=== PATIENT | female | born 1975 | race African-American/Black ===

== ENCOUNTER → 2018-06-06 | Outpatient (CLI) | payer OTHER ==
[2018-06-05 15:58] VITALS: BMI 22.3
--- NOTE | 2018-06-06 13:56 | P.CONS ---
History of Present Illness - Reason for Consult Consult date: 06/06/18 - Chief Complaint Widespread body pain - History of Present Illness This is a 43-year-old lady with chronic history of body pain. The patient used to go to neurology clinic for injections on her back with trigger points and other procedures which she could not name. She used to use tramadol, [place] previously for her pain. Her pain is constant mostly in her lower back her mid back and her upper back and neck she also feels pain in both arms and legs. The pain wakes her up at night and she does not feel well rested when she wakes up in the morning. She said that tramadol give her good relief of pain when she combines it with Tylenol. She has scoliosis in the upper thoracic spine as per her last MRI. Review of Systems Constitutional: Reports fatigue Ears, nose, mouth and throat: Denies headache, Denies sore throat Cardiovascular: Denies chest pain, Denies shortness of breath Respiratory: Denies cough Genitourinary: Denies dysuria, Denies hematuria Musculoskeletal: Reports as per HPI Neurological: Reports as per HPI Past Medical History Past Medical History: Asthma, GERD/Reflux History of Any Multi-Drug Resistant Organisms: None Reported Past Surgical History: No Surgical Hx Reported Past Anesthesia/Blood Transfusion Reactions: No Reported Reaction Smoking Status: Current every day smoker - Past Family History Mother Family Medical History: No Reported History Medications and Allergies Home Medications Medication Instructions Recorded Confirmed Type Albuterol Inhaler [Ventolin Hfa 1 - 2 puff INHALATION RT-Q6H PRN 06/05/18 History Inhaler] Fluticasone/Salmeterol [Advair 1 inhalation PO BID 06/05/18 06/05/18 History 250-50 Diskus] Montelukast [Singulair] 10 mg PO DAILY 06/05/18 06/05/18 History Omeprazole [PriLOSEC] 20 mg PO AC-BRKFST 06/05/18 06/05/18 History Allergies Allergy/AdvReac Type Severity Reaction Status Date / Time niacin Allergy Rash/Hives Verified 06/05/18 15:52 Physical Exam Vitals: Intake and Output 06/05/18 06/06/18 06/06/18 22:59 06:59 14:59 Other: Weight 58.967 kg - Constitutional General appearance: thin - EENT Eyes: PERRLA - Respiratory Respiratory: bilateral: CTA - Cardiovascular Rhythm: regular - Neurologic Neuro exam of the upper or lower extremities showed normal and symmetrical muscle strength and deep tendon reflexes. She has widespread tenderness in the cervical paravertebral musculature and also in the lumbar and thoracic paravertebral musculature also. She has tenderness also on the sternocleidomastoid muscles bilaterally and the medial aspects of her knee joints bilaterally also on the anterior chest area at the level of the second rib bilaterally. She has normal range of motion of the cervical spine. Neurologic: CNII-XII intact Assessment and Plan Plan: This is a 43-year-old lady with what seems to be fibromyalgia and myofascial pain. The patient may benefit from getting trigger point injection from time to time however she has been getting any injections at a different clinic clinic with temporary relief of pain only. At this time I think the best treatment for her would be physical therapy and I will give her prescription for both Tylenol and a few pills of tramadol only 20 pills. She can use Tylenol on a daily basis and she can support that with tramadol which she gets severe exacerbation of her pain. We will see the patient in 4 weeks for reevaluation. The plan will be to refer her to her primary care physician for prescriptions as soon as we put her on a stable schedule of the medications. The patient understands that using office for fibromyalgia is usually contraindicated. I thank you for the consultation
[2018-06-06 14:04] VITALS: BP 113/75; PULSE 95; RESP 18
== END | disposition home or self-care (01) ==
LOC: PNWHC3 12:42
PROVIDERS: ATTEND Anesthesiology
DX: G89.29 Other chronic pain (principal); M54.5 Low back pain; M41.84 Other forms of scoliosis, thoracic region; K21.9 Gastro-esophageal reflux disease without esophagitis; F17.200 Nicotine dependence, unspecified, uncomplicated; J45.909 Unspecified asthma, uncomplicated; Z88.8 Allergy status to other drugs, medicaments and biological substances; Z79.891 Long term (current) use of opiate analgesic
CPT/HCPCS: 99201

== ENCOUNTER → 2019-08-08 | Outpatient (CLI) | payer OTHER ==
[2019-08-08 13:06] VITALS: BP 143/94; PULSE 94; RESP 16
--- NOTE | 2019-08-09 14:37 | P.PAINPG ---
Subjective Progress Note Date: 08/08/19 This is a 44-year-old lady with chronic history of body pain, last evaluated in our clinic in May 2018, at which time it was thought that she primarily had fibromyalgia and myofascial pain syndrome. She was prescribed 20 pills of tramadol and instructed to take when necessary Tylenol. She is also given physical therapy prescription. She was then lost to follow-up. She returns today. She reports that she attempted physical therapy, with no significant benefit. Since her last visit, her primary care physician has started her on gabapentin, approximately 2 months ago, she ran out of this prescription recently and has not refilled it. Today, she has multiple different pain complaintsneck, upper thoracic region, low back, bilateral knees and bilateral ankles. She states that the pain is always there and has been present for 10 years, rated as 8-10/10. She uses marijuana when necessary which helps with the pain. Of note, in the past she has been diagnosed with rheumatoid arthritis, however is not currently seeing a insurance checker or on any medications for it. Of note, the patient used to follow with Dr. Romero and was undergoing procedures with him, she reports that he wanted to proceed with radiofrequency ablation, however she did not proceed with this. She is currently not interested in any interventional pain procedures. Review of systems is negative for chest pain, shortness of breath, new onset weakness, numbness/tingling, abdominal pain, malaise, fever, night sweats, chills, homicidal or suicidal ideation, or bowel or bladder incontinence. Physical Exam Physical exam: Vitals: Reviewed in EMR GENERAL: Well appearing, in no acute distress PSYCH: Mood and affect is appropriate. Awake, alert, and oriented SKIN: Skin color, texture, turgor normal, no rashes or lesions HEENT: Normocephalic, atraumatic. EOM intact CV: No pedal edema RESP: Respirations are unlabored, no audible wheezing GI: Abdomen non-distended MUSCULOSKELETAL: Bilateral upper and lower extremity strength is normal and symmetric. No atrophy or tone abnormalities are noted. Spine: Diffuse tenderness noted in cervical, thoracic, and lumbar paraspinal musculature. Lumbar facet loading is positive bilaterally. normal cervical spine range of motion Extremities: Peripheral joint ROM is full and pain free without obvious instability or laxity in all four extremities. No edema or skin discolorations noted. Gait: Gait is normal NEUR: Bilateral upper and lower extremity coordination and muscle stretch reflexes are physiologic and symmetric. Negative clonus bilaterally. No loss of sensation is noted. Assessment and Plan Plan: This is a 43-year-old lady with multiple different sources of pain, likely attributed to a combination of fibromyalgia, myofascial pain syndrome, rheumatoid arthritis. She also has some degree of lumbar facetogenic pain from lumbar spondylosis. She is not currently interested in any interventional pain procedures. Medications: I asked her to have a discussion with her primary care physician regarding starting Cymbalta, as it has been shown to be beneficial in patients with fibromyalgia. I also asked her to continue gabapentin. We had a lengthy discussion regarding narcotics and that studies have shown that there is no role for narcotics in patients with fibromyalgia. The patient expressed understanding. Counseling: I provided her with a handout for an online fibromyalgia resourcefibroguide by Dr. Ayden Clifton, from [facility]. I also informed her that physical therapy and exercises the mainstay of treatment for this and she would likely benefit from aqua therapy, she goes to the [facility] in summer with her child. I asked her to participate in water aerobics at that point. Consults: She may benefit from seeing a insurance checker, she has had a prior diagnosis of rheumatoid arthritis. I asked her to discuss this with her primary care physician. Interventions: None currently, as she is not interested. She may benefit from lumbar medial branch workup, we discussed this and I told her to call our clinic if she is interested in the future. Follow-up: When necessary My note will be sent to Dr. John Lee, who is her her primary care physician. PQRS Measure Charge Sheet Measure #130: Documentation of Current Meds in Medical Chart: Patient's medications documented in chart Measure #226: Tobacco Use: Screen & Cessation Intervention: Pt screened for tobacco use AND intervention given Measure #111: Pneumonia Vaccination: Pneumococcal vaccine NOT administered or previously given Measure #47: Advance Care Plan: Advance care planning discussed & documented, pt chose/unable to give Measure #412: Opioid Treatment Agreement: No documentation of signed opioid treatment agreement Measure #408: Opioid Therapy Follow-up Evaluation: Patient had NO f/u eval minimum every 3 months during opioid therapy Measure #317: Preventitive Care & Scrn High Bld Press & F/U: Normal blood pressure, f/u not required Measure #128: Body Mass Index (BMI) Screening & Follow-up: BMI documented within normal parameters Measure #131: Pain Assessment & Follow-up: Pain positive & plan documented, Follow-up PRN Measure #431: Unhealthy Alcohol Use Preventative Care & Scrn: Patient not identified as an unhealthy alcohol user PQRS Narrative: Smoking Status Current every day smoker Hx Alcohol Use (MH) No Home Medications: Ambulatory Orders Albuterol Inhaler [Ventolin Hfa Inhaler] 1 - 2 puff INHALATION RT-Q6H PRN 06/05/18 Fluticasone/Salmeterol [Advair 250-50 Diskus] 1 inhalation PO BID 06/05/18 Montelukast [Singulair] 10 mg PO DAILY 06/05/18 Omeprazole [PriLOSEC] 20 mg PO AC-BRKFST 06/05/18 Gabapentin [Neurontin] 800 mg PO TID 08/08/19 Controlled Substance Measures - Controlled Substance Measures Is patient prescribed a controlled substance at discharge?: No
== END | disposition home or self-care (01) ==
LOC: PNWHC3 12:19
PROVIDERS: ATTEND Anesthesiology
DX: M47.816 Spondylosis without myelopathy or radiculopathy, lumbar region (principal); F17.200 Nicotine dependence, unspecified, uncomplicated; Z79.51 Long term (current) use of inhaled steroids; Z79.899 Other long term (current) drug therapy
CPT/HCPCS: 99211

== ENCOUNTER → 2020-12-24 | Outpatient (CLI) | payer OTHER ==
--- NOTE | 2020-12-24 12:00 | XR ---
Bilateral calcaneus 2 views of each calcaneus are submitted, no comparisons Bone mineralization is maintained. No significant spur formation or enthesophyte formation. No fractu re or dislocation. IMPRESSION: Normal calcaneus bilaterally.
--- NOTE | 2020-12-24 12:01 | XR ---
Lumbar spine HISTORY: Low back pain 3 views lumbar spine Lumbar vertebral bodies show preserved height, alignment, and bone mineralization. Disc spaces are ma intained. There is mild spondylosis. Sclerosis present in the posterior elements of the lower lumbar spine. Possible 3 mm calcification over the lower pole the left kidney. IMPRESSION: Lumbar spondylosis, possible facet arthropathy. Possible nephrolithiasis.
--- NOTE | 2020-12-24 12:03 | XR ---
Thoracic spine HISTORY: Back pain There is an S-shaped thoracic scoliosis. Thoracic vertebral bodies show preserved height. Disc spaces are relatively maintained. Is mild multilevel spondylosis. IMPRESSION: S-shaped thoracic scoliosis
--- NOTE | 2020-12-24 12:04 | XR ---
Bilateral knees HISTORY: Pain 2 views of each knee submitted. Bone mineralization, joint spaces and alignment are remarkable for question some mild joint space los s in the medial compartments. Sclerosis present within the medial femoral condyle of the left knee ma y represent a bone island. No fracture or dislocation. No evident joint effusion. IMPRESSION: May be some mild osteoarthritic change. Possible bone island.
== END | disposition home or self-care (01) ==
LOC: RADXRMAIN 10:47
PROVIDERS: ATTEND Internal Medicine
DX: M47.816 Spondylosis without myelopathy or radiculopathy, lumbar region (principal); M25.561 Pain in right knee; M25.562 Pain in left knee; M41.84 Other forms of scoliosis, thoracic region
CPT/HCPCS: 72070; 72100

== ENCOUNTER → 2021-02-12 | Outpatient (CLI) | payer OTHER ==
--- NOTE | 2021-02-15 14:26 | MM ---
Reason for exam: screening (asymptomatic). Baseline mammogram. Physical Findings: Nurse did not find any significant physical abnormalities on exam. MG Screening Mammo w CAD Bilateral CC and MLO view(s) were taken. There is a mass in the right upper quadrant middle depth and ultrasound is recommended. ASSESSMENT: Incomplete: need additional imaging evaluation, BI-RAD 0 RECOMMENDATION: Ultrasound of both breasts. [facility] will attempt to contact patient to return for ultrasound.
== END | disposition home or self-care (01) ==
LOC: RADMAMWWP 13:09
PROVIDERS: ATTEND Internal Medicine
DX: Z12.31 Encounter for screening mammogram for malignant neoplasm of breast (principal)
CPT/HCPCS: 77067

== ENCOUNTER → 2021-02-23 | Outpatient (CLI) | payer OTHER ==
--- NOTE | 2021-02-26 13:17 | USB ---
Reason for exam: additional evaluation requested from abnormal screening. Physical Findings: Breast exam preformed at baseline screening. US Breast Workup Limited MARIVEL Right limited breast ultrasound including focal area of concern, retroareolar and axilla demonstrates a 1.0 x 1.2 x 0.8cm lymph node at 10 o'clock, a 0.4 x 0.3 x 0.3cm oval, cystic lesion at 10 o'clock, duct ectasia at 12 o'clock and a 0.7 x 0.8 x 0.3cm lymph node at the axilla. Left limited breast ultrasound including focal area of concern, retroareolar and axilla demonstrates a 1.4 x 1.2 x 0.8cm lymph node at the axilla and a 0.8 x 0.5 x 1.0cm lymph node at the axilla. These results were verbally communicated with the patient and result sheet given to the patient on 02/23/21. ASSESSMENT: Probably benign, BI-RAD 3 RECOMMENDATION: Ultrasound of both breasts in 6 months.
== END | disposition home or self-care (01) ==
LOC: RADUSWWP 13:50
PROVIDERS: ATTEND Internal Medicine
DX: N63.10 Unspecified lump in the right breast, unspecified quadrant (principal); R92.8 Other abnormal and inconclusive findings on diagnostic imaging of breast

== ENCOUNTER → 2021-03-08 | Outpatient (CLI) | payer OTHER ==
--- NOTE | 2021-03-09 01:46 | MR ---
EXAMINATION TYPE: MR knee LT wo con DATE OF EXAM: 03/08/2021 COMPARISON: None HISTORY: Bilateral knee pain, painful knee caps, locking, and swelling for 15 years. Multiplanar multiecho imaging of the left knee with no contrast. The anterior and posterior cruciate ligaments are intact. There is small knee joint effusion. Patella is intact. Patella tendon appears normal. There is small horizontal defect through the posterior hor n of the medial meniscus. This does not extend to the articular surface. The lateral meniscus appears intact. I see no bony destructive process. The collateral ligaments appear intact. There is no evide nce of a fracture. I see no focal bone destruction. IMPRESSION: Small knee joint effusion. Small intrasubstance tear of the posterior horn medial meniscus. No eviden ce of ligamentous tear. No fracture.
--- NOTE | 2021-03-09 01:53 | MR ---
EXAMINATION TYPE: MR knee RT wo con DATE OF EXAM: 03/08/2021 COMPARISON: None HISTORY: Bilateral knee pain, painful knee caps, locking, and swelling for 15 years. Multiplanar multiecho imaging of the right knee with no contrast. The anterior posterior cruciate ligaments appear intact. There is small knee joint effusion. Lateral meniscus appears intact. Medial meniscus appears fairly normal. The collateral ligaments appear intac t. There is no evidence of a fracture. I see no focal bone destruction. Patella is intact. IMPRESSION: Small knee joint effusion consistent with some minimal synovitis. No evidence of any significant liga mentous or meniscal tear.
== END | disposition home or self-care (01) ==
LOC: RADMRIMAIN 19:40
PROVIDERS: ATTEND Orthopaedic Surgery
DX: S83.242A Other tear of medial meniscus, current injury, left knee, initial encounter (principal); M23.8X2 Other internal derangements of left knee; M23.8X1 Other internal derangements of right knee; M25.461 Effusion, right knee; M25.462 Effusion, left knee; M65.861 Other synovitis and tenosynovitis, right lower leg; X58.XXXA Exposure to other specified factors, initial encounter

== ENCOUNTER 2021-04-26 09:40 | Day surgery (SDC) | payer OTHER ==
[2021-04-22 16:05] VITALS: BMI 25.7
[~2021-04-26 09:40] MED LIST: DEXAMETHASONE SOD PHOSPHATE 4 MG/ML 1 ML VIAL IV ONE; LACTATED RINGERS 1,000 ML IV SCH; LIDOCAINE 1% (10MG/ML) FOR IV START INTRADERMA PRN; MIDAZOLAM 2 MG/2 ML VIAL IV PRN; ONDANSETRON 4 MG/2 ML VIAL IVP ONE; Pre Op ABX Message 1 EACH MISC MISCELLANE ONE
[2021-04-26 10:35] LABS: Glucose,Whole Blood 113 mg/dL (75-99)
[2021-04-26] MEDS ORDERED: PROPOFOL 10 MG/ML 20 ML VIAL IV ONE (10:54)
[2021-04-26] MEDS ORDERED: MIDAZOLAM 2 MG/2 ML VIAL ONE (10:54)
[2021-04-26] MEDS ORDERED: fentaNYL (PF) 50 MCG/ML 2 ML AMP ONE (10:54)
[2021-04-26] MEDS ORDERED: KETAMINE 10 MG/ML 20 ML VIAL ONE (10:54)
[2021-04-26] MEDS ORDERED: SUCCINYLCHOLINE CHLORIDE 100 MG/5 ML SYR IV ONE (10:54)
[2021-04-26] MEDS ORDERED: LIDOCAINE 1% INJ 10MG/ML (20 ML MDV) ONE (10:54)
[2021-04-26] MEDS ORDERED: BUPIVACAINE (PF) 0.25% 30 ML VIAL SQ ONE (11:23)
--- NOTE | 2021-04-26 11:32 | P.OP ---
Date of Procedure: 04/26/21 Preoperative Diagnosis: Torn medial meniscus left knee Postoperative Diagnosis: 1. Torn medial meniscus left knee 2. Grade 2 chondromalacia medial femoral condyle 3. Synovitis Procedure(s) Performed: 1. Arthroscopy left knee with partial medial meniscectomy (5% of meniscus excised) 2. Chondroplasty medial femoral condyle 3. Partial synovectomy of the medial femoral, lateral femoral, and patellofemoral compartments Anesthesia: LAIA Surgeon: Ziyad Onofre Estimated Blood Loss (ml): 2 Pathology: none sent Condition: stable Disposition: PACU Indications for Procedure: This is a 46-year-old female then my office with pain in her left knee. After failing conservative treatment we discussed the surgical and nonsurgical treatment options at length she was to proceed with arthroscopic debridement of her left knee. Informed consent was obtained. Operative Findings: The operative findings are consistent with a tear of the posterior horn of the medial meniscus, grade 2 chondral malacia medial femoral condyle, and synovitis Description of Procedure: Patient was seen and evaluated in the preoperative area, the operative site was marked with a skin marker. The patient was then brought to the operating room a nd given 2 g of Ancef intravenously. A general anesthetic was administered by the anesthesia department. Tourniquet was placed on the right upper thigh and the left lower extremity was then prepped and draped in usual sterile fashion. A universal timeout was then performed confirming the patient's name, surgical site, ALLERGIES, and consent. The limb was then exsanguinated and tourniquet insufflated to 250 mmHg. Standard inferior medial and inferior lateral portals were established in the knee. The trochar was inserted in the inferolateral portal. Examination began at the patellofemoral joint. There was no chondral malacia of the patellofemoral compartment and a moderate amount of synovitis. Next the medial compartment was visualized. There was a tear of the posterior horn of the medial meniscus. There was grade 2 chondral malacia the mediofemoral compartment and synovitis. The notch area was then visualized and the ACL was intact. The Lateral compartment was then visualized and there was no tear of the lateral meniscus. There was no evidence of chondromalacia, but a mild amount of synovitis. Next, using an arthroscopic shaver and a biter, partial medial meniscectomy was performed stable margins. Approximately 5% of the meniscus was excised. A partial synovectomy is performed the medial femoral, lateral femoral, patellofemoral compartments. Chondroplasty was also performed of the medial femoral compartment of the knee. Knee was then copiously irrigated, instruments removed, incisions were closed with 4-0 nylon. 30 mL of quarter percent plain Marcaine was injected sterilely into the surgical area. A sterile dressing was then applied, and the tourniquet was released. Patient was then transferred to recovery room in stable condition.condition.
[2021-04-26 11:47] VITALS: TEMP 98.2
[2021-04-26] MEDS: HYDROmorphone 0.5 MG/0.5 ML SYRINGE IVP PRN ×2 (11:49→12:02)
[2021-04-26] MEDS ORDERED: LACTATED RINGERS 1,000 ML IV ONE (12:07)
[2021-04-26 12:36] VITALS: RESP 16
[2021-04-26 13:23] VITALS: PULSE 76
[2021-04-26 13:24] VITALS: BP 131/81
== END 2021-04-26 13:26 | disposition home health service (06) ==
LOC: OR 09:40
PROVIDERS: ATTEND Orthopaedic Surgery
DX: S83.242A Other tear of medial meniscus, current injury, left knee, initial encounter (principal); M94.262 Chondromalacia, left knee; M65.9 Synovitis and tenosynovitis, unspecified; J45.909 Unspecified asthma, uncomplicated; F17.210 Nicotine dependence, cigarettes, uncomplicated; Z79.899 Other long term (current) drug therapy; Z88.8 Allergy status to other drugs, medicaments and biological substances; S83.206A Unspecified tear of unspecified meniscus, current injury, right knee, initial encounter
CPT/HCPCS: 81025; 29881; 29876; J2250; J1100; J0690; J2405; J2001; J3010; J0330; J2704; J1170

== ENCOUNTER 2022-11-21 13:27 | Emergency (ER) | payer OTHER ==
--- NOTE | 2022-11-21 14:21 | ED ---
Lower Extremity Injury HPI - General Chief Complaint: Extremity Injury, Lower Stated Complaint: L ankle injury Time Seen by Provider: 11/21/22 13:49 Source: patient, RN notes reviewed Mode of arrival: wheelchair Limitations: no limitations - History of Present Illness Initial Comments: 47-year-old female presents emergency Department chief complaint left ankle injury. Patient states she stepped in a hole that her dog dug. Patient states she rolled her ankle complains a left lateral ankle pain no prior surgeries to her left ankle or prior fractures. Patient is swollen, more painful today. - Related Data Home Medications Medication Instructions Recorded Confirmed Montelukast [Singulair] 10 mg PO DAILY 06/05/18 04/22/21 Albuterol Sulfate [Proair Hfa] 1 - 2 puff INHALATION Q6HR PRN 04/22/21 04/22/21 Pantoprazole [Protonix] 40 mg PO DAILY 04/22/21 04/22/21 metFORMIN HCL 250 mg PO DAILY 04/22/21 04/22/21 Previous Rx's Medication Instructions Recorded Aspirin 325 mg PO BID 14 Days #28 tab 04/26/21 HYDROcodone/APAP 7.5-325MG [[place] 1 - 2 tab PO Q6H PRN #32 tab 04/26/21 7.5-325] Sennosides [Senokot] 2 tab PO DAILY PRN #60 tablet 04/26/21 Ibuprofen [Motrin] 600 mg PO Q8HR PRN #20 tab 11/21/22 Allergies Allergy/AdvReac Type Severity Reaction Status Date / Time niacin Allergy Rash/Hives Verified 11/21/22 13:43 Review of Systems ROS Statement: Those systems with pertinent positive or pertinent negative responses have been documented in the HPI. ROS Other: All systems not noted in ROS Statement are negative. Past Medical History Past Medical History: Asthma, GERD/Reflux Additional Past Medical History / Comment(s): Borderline Diabetic. Back, knee and heel pain. History of Any Multi-Drug Resistant Organisms: None Reported Past Surgical History: No Surgical Hx Reported Past Anesthesia/Blood Transfusion Reactions: No Reported Reaction Additional Past Anesthesia/Blood Transfusion Reaction / Comment(s): Has never had general anesthesia. Past Psychological History: Anxiety, Bipolar, Depression, PTSD Smoking Status: Current every day smoker Past Alcohol Use History: None Reported Past Drug Use History: None Reported - Past Family History Mother Family Medical History: No Reported History General Exam Limitations: no limitations General appearance: alert, in no apparent distress Head exam: Present: atraumatic, normocephalic, normal inspection Eye exam: Present: normal appearance, PERRL, EOMI. Absent: scleral icterus, conjunctival injection, periorbital swelling Respiratory exam: Present: normal lung sounds bilaterally. Absent: respiratory distress, wheezes, rales, rhonchi, stridor Cardiovascular Exam: Present: regular rate, normal rhythm, normal heart sounds. Absent: systolic murmur, diastolic murmur, rubs, gallop, clicks Extremities exam: Present: other (Left ankle lateral malleolus there is moderate swelling, tenderness with palpation, neurovascular intact there is no proximal tib-fib tenderness or distal foot tenderness.) Course Vital Signs 11/21/22 11/21/22 11/21/22 13:40 14:45 14:56 Temperature 98.0 F 97.9 F Pulse Rate 100 94 Respiratory 20 16 Rate Blood Pressure 150/80 165/92 107/98 O2 Sat by Pulse 96 98 Oximetry 11/21/22 14:59 Temperature 97.9 F Pulse Rate 89 Respiratory 16 Rate Blood Pressure O2 Sat by Pulse Oximetry Medical Decision Making - Medical Decision Making Was pt. sent in by a medical professional or institution (, PA, BAIL AGENT, urgent care, hospital, or detention...) When possible be specific @ -No Did you speak to anyone other than the patient for history (EMS, parent, family, police, friend...)? What history was obtained from this source @ -No Did you review nursing and triage notes (agree or disagree)? Why? @ -I reviewed and agree with nursing and triage notes Were old charts reviewed (outside hosp., previous admission, EMS record, old EKG, old radiological studies, urgent care reports/EKG's, detention records)? Report findings @ -No old charts were reviewed Differential Diagnosis (chest pain, altered mental status, abdominal pain women, abdominal pain men, vaginal bleeding, weakness, fever, dyspnea, syncope, headache, dizziness, GI bleed, back pain, seizure, CVA, palpatations, mental health, musculoskeletal)? @ -Ankle fracture ankle sprain EKG interpreted by me (3pts min.). @ -None X-rays interpreted by me (1pt min.). @ -X-ray is negative for acute fracture CT interpreted by me (1pt min.). @ -None done U/S interpreted by me (1pt. min.). @ -None done What testing was considered but not performed or refused? (CT, X-rays, U/S, labs)? Why? @ -None What meds were considered but not given or refused? Why? @ -None Did you discuss the management of the patient with other professionals (professionals i.e. , PA, BAIL AGENT, lab, RT, psych nurse, social worker school, retail business manager, teacher, electorate officer, community case manager)? Give summary @ -No Was smoking cessation discussed for >3mins.? @ -No Was critical care preformed (if so, how long)? @ -No Were there social determinants of health that impacted care today? How? (Homelessness, low income, unemployed, alcoholism, drug addiction, transportation, low edu. Level, literacy, decrease access to med. care, [facility], rehab)? @ -No Was there de-escalation of care discussed even if they declined (Discuss DNR or withdrawal of care, Hospice)? DNR status @ -No What co-morbidities impacted this encounter? (DM, HTN, Smoking, COPD, CAD, Cancer, CVA, ARF, Chemo, Hep., AIDS, mental health diagnosis, sleep apnea, morbid obesity)? @ -None Was patient admitted / discharged? Hospital course, mention meds given and route, prescriptions, significant lab abnormalities, going to OR and other pertinent info. @ -X-ray is negative for acute fracture. Patient has a ankle sprain will be discharged in stable condition with [facility]. Undiagnosed new problem with uncertain prognosis? @ -No Drug Therapy requiring intensive monitoring for toxicity (Heparin, Nitro, Insulin, Cardizem)? @ -No Were any procedures done? @ -No Diagnosis/symptom? @ -Ankle sprain Acute, or Chronic, or Acute on Chronic? @ -Acute Uncomplicated (without systemic symptoms) or Complicated (systemic symptoms)? @ -Uncomplicated Side effects of treatment? @ -No Exacerbation, Progression, or Severe Exacerbation? @ -No Poses a threat to life or bodily function? How? (Chest pain, [place], [place], pneumonia, PE, COPD, DKA, ARF, appy, cholecystitis, CVA, Diverticulitis, Homicidal, Suicidal, threat to staff... and all critical care pts) @ -No Disposition Clinical Impression: Left ankle sprain Disposition: HOME SELF-CARE Condition: Stable Instructions (If sedation given, give patient instructions): Ankle Sprain (ED) Additional Instructions: Please return to the Emergency Department if symptoms worsen or any other concerns. Prescriptions: Ibuprofen [Motrin] 600 mg PO Q8HR PRN #20 tab PRN Reason: Pain Is patient prescribed a controlled substance at d/c from ED?: No Referrals: Rosalba Martínez MD [Primary Care Provider] - 1-2 days Darrius Wu MD [Medical Doctor] - 1-2 days Time of Disposition: 14:46
--- NOTE | 2022-11-21 14:32 | XR ---
EXAMINATION TYPE: XR ankle complete LT DATE OF EXAM: 11/21/2022 CLINICAL HISTORY: Pain and swelling TECHNIQUE: Frontal, lateral and oblique images of the left ankle are obtained. COMPARISON: None. FINDINGS: There is no acute fracture/dislocation evident in the left ankle. The ankle mortise appea rs within normal limits. Focal mild to moderate soft tissue swelling at level of lateral malleolus. IMPRESSION: As above.
[2022-11-21 14:57] VITALS: BP 107/98; RESP 16; TEMP 97.9
[2022-11-21 15:00] VITALS: PULSE 89
== END 2022-11-21 15:11 | disposition home or self-care (01) ==
LOC: EC 13:27
DX: S93.402A Sprain of unspecified ligament of left ankle, initial encounter (principal); J45.909 Unspecified asthma, uncomplicated; K21.9 Gastro-esophageal reflux disease without esophagitis; F17.200 Nicotine dependence, unspecified, uncomplicated; Z79.899 Other long term (current) drug therapy; Z88.8 Allergy status to other drugs, medicaments and biological substances; X50.1XXA Overexertion from prolonged static or awkward postures, initial encounter
CPT/HCPCS: 99283